=== PATIENT | male | born 1955 | race Caucasian/White ===

== ENCOUNTER 2017-09-26 10:15 | Outpatient (CLI) | payer BC ==
--- NOTE | 2017-09-26 12:42 | MRI ---
BRAIN MRI WITH AND WITHOUT CONTRAST: HISTORY: Memory loss x6 months. COMPARISON: None. TECHNIQUE: A brain MRI is performed with and without intravenous Gadolinium administration. Multisequential, mu ltiplanar imaging is performed. FINDINGS: No parenchymal hemorrhage. No extraaxial hematoma. No midline shift. The basilar cisterns are aguiar nt. Brain volume is age appropriate. Cortical stearns white matter differentiation is preserved. Ventricles and sulci are patent and symmetric. Scattered T2 and FLAIR white matter hyperintensities due to chronic small vessel ischemic change. No evidence of hemorrhage on the axial gradient echo sequence. The calvarium is intact. Appropriate T1 marrow signal intensity. There is extensive paranasal sinus disease, greatest in the right maxillary sinus. Adequate mastoid air cell aeration. No pathologic enhancement of the brain parenchyma. Note is made of a partially empty sella. IMPRESSION: 1. Age appropriate atrophy. 2. Chronic small vessel ischemic change of the white matter. 3. Absent restricted diffusion. 4. No acute infarction. POS: [facility]
[2017-09-26] MEDS ORDERED: Gadobenate Dimeglumine 529 MG/1 ML (20ML VIAL) ONE (13:29)
== END 2017-09-26 10:16 | disposition home or self-care (01) ==
LOC: TBSIIMAG 10:15
PROVIDERS: ATTEND Psychiatry & Neurology Neurology
DX: G31.84 Mild cognitive impairment of uncertain or unknown etiology (principal); G93.89 Other specified disorders of brain; R41.89 Other symptoms and signs involving cognitive functions and awareness
CPT/HCPCS: 36415; 70553; 82306; 82390; 82525; 82607; 82746; 83921; 84425; 84446; 85652; 86038; 86140; 86225; 86592; A9579